=== PATIENT | male | born 1985 | race Two or more races ===

== ENCOUNTER 2020-03-08 13:54 | Emergency (ER) | payer MEDICAID ==
[~2020-03-08] VITALS: Ht 172.7 cm; Wt 117.9 kg
[2020-03-08 14:00] VITALS: BP 126/88
[2020-03-08] MEDS ORDERED: KETOROLAC TROMETH 60MG/2ML VIAL IM ONE (16:45)
== END 2020-03-08 17:14 | disposition home or self-care (01) ==
LOC: ER 13:54
DX: M54.16 Radiculopathy, lumbar region (principal)
CPT/HCPCS: 96372; 99283; J1885